=== PATIENT | female | born 1960 | race Caucasian/White ===

== ENCOUNTER → 2016-10-30 | Outpatient (CLI) | payer OTHER ==
[~2016-10-30] MED LIST: ASPI81CH CHEW; ASPI81TA82 PO; BUPR150T3 PO; CALC-137 PO; CALC1WAF CHEW; CARA1TAB6 PO; CLON1 PO; ESCI10TA PO; EVIS60TA PO; LANS30 PO; LEXA10TA PO; LOPR50TA12 PO; MAGICPED SWISH-SWAL; METO-309 PO; NEXI40CA PO; PRAV80 PO; RALO1TAB13 PO; SUCR1S PO; WELLTAB39 PO; ZOFR4TAB3 SL
[2016-10-30 13:39] LABS: PROTHROMBIN TIME - PATIENT 10.9 SEC (9.8-11.6)
== END ==
LOC: PLAB 12:46
PROVIDERS: ATTEND Orthopaedic Surgery Orthopaedic Surgery of the Spine
DX: Z01.818 Encounter for other preprocedural examination (principal); D68.9 Coagulation defect, unspecified; Z79.01 Long term (current) use of anticoagulants
CPT/HCPCS: 36415; 85049; 85610

== ENCOUNTER → 2016-11-02 | Day surgery (SDC) | payer OTHER ==
[~2016-11-02] MED LIST changes: +ACETAMINOPHEN/HYDROcodone 325 MG/5 MG TAB ONE; +BUPIVACAINE/EPINEPHRINE 0.5% PF 30 ML VIAL ONE; +IOHEXOL 180 MG/ML 20 ML VIAL (for RAD DIAG) ONE; +KETOROLAC TROMETHAMINE 30 MG/ML (IVP) VIAL IV PUSH ONE; +LACTATED RINGER'S 1000 ML INJ 1,000 ML ONE; +LIDOCAINE 1%/EPINEPHrine 1:100,000 SOLN 20 ML VIAL ONE; +MIDAZOLAM HCL 2 MG/2 ML VIAL ONE; +PROPOFOL 200 MG/20 ML AMP IV ONE; +ceFAZolin 2 GM PREMIX 50 ML ONE
--- NOTE | 2016-11-02 15:20 | TN ---
cc: AMISHA HASSAN DATE OF SURGERY: 11/02/2016 PREOPERATIVE DIAGNOSIS Compression fracture T5, subacute. POSTOPERATIVE DIAGNOSIS Compression fracture T5, subacute. PROCEDURE Kyphoplasty of T5 and placement of a bone cement spacer. SURGEON Amisha Hassan ANESTHESIA TIVA. ESTIMATED BLOOD LOSS Minimal. INDICATION This is a 56-year-old female who over the , approximately 6-7 weeks ago, fell in the shower sustaining an injury to her mid back. Studies including a CT scan showed continued compression across a recent fracture at the T5 level. Despite conservative care the patient is painful and symptomatic. She presents for surgical treatment. DETAILS OF PROCEDURE The patient was brought to the operating room and anesthetized with limited sedation. She was rolled to a prone position on the radiolucent table. All pressure points were protected and the back was scrubbed with alcohol followed by Hibiclens followed by ChloraPrep and draped sterilely. Antibiotics were given within a one hour time window and a timeout was done. A single balloon approach from the left side was utilized. Local anesthesia was utilized. A small incision was made. An awl was placed through the pedicle and into the vertebral body at an oblique angle. A 15 mm Kyphon balloon was placed centrally. This was inflated while on the back table methyl methacrylate was mixed. On the back table this was held and then injected at 11 minutes. We overall had good fill but began having some extravasation anteriorly and filling was stopped. The cement was allowed to harden. The tubes were removed. Intraoperative x-rays were obtained. The wound was irrigated, anesthetized and closed with 4-0 Vicryl followed by Dermabond. The patient was awakened and taken to Recovery in satisfactory condition. MD SHANTHI Varela/AKASH /3:10 PM /3:15 PM
== END | disposition home or self-care (01) ==
LOC: ESDC 12:38
PROVIDERS: ATTEND Orthopaedic Surgery Orthopaedic Surgery of the Spine
DX: S22.050A Wedge compression fracture of T5-T6 vertebra, initial encounter for closed fracture (principal)
CPT/HCPCS: 01936; 22513; 72100; J0690; J1885; J2250; J3010; J7120; Q9965

== ENCOUNTER → 2016-11-21 | Outpatient (CLI) | payer OTHER ==
[~2016-11-21] MED LIST changes: -ACETAMINOPHEN/HYDROcodone 325 MG/5 MG TAB ONE; -BUPIVACAINE/EPINEPHRINE 0.5% PF 30 ML VIAL ONE; -IOHEXOL 180 MG/ML 20 ML VIAL (for RAD DIAG) ONE; -KETOROLAC TROMETHAMINE 30 MG/ML (IVP) VIAL IV PUSH ONE; -LACTATED RINGER'S 1000 ML INJ 1,000 ML ONE; -LIDOCAINE 1%/EPINEPHrine 1:100,000 SOLN 20 ML VIAL ONE; -MIDAZOLAM HCL 2 MG/2 ML VIAL ONE; -PROPOFOL 200 MG/20 ML AMP IV ONE; -ceFAZolin 2 GM PREMIX 50 ML ONE
[2016-11-21 13:37] LABS: BICARBONATE 29.6 MEQ/L (21.0-32.0)
== END ==
LOC: PLAB 10:49
PROVIDERS: ATTEND Family Medicine
DX: N28.9 Disorder of kidney and ureter, unspecified (principal)
CPT/HCPCS: 36415; 80048

== ENCOUNTER → 2017-02-22 | Outpatient (CLI) | payer OTHER ==
[2017-02-22 13:34] LABS: AUTOMATED NEUTROPHIL # 4.7 TH/MM3 (1.8-7.7); BASOPHIL % 0.3 % (0.0-2.0); EOSINOPHIL # 0.2 TH/MM3 (0-0.4); HEMATOCRIT 38.9 % (35.0-46.0); HEMO FLAGS DIFF FINAL; LYMPH % 33.4 % (9.0-44.0); LYMPHOCYTE # 2.9 TH/MM3 (1.0-4.8); MEAN CELL VOLUME 86.4 FL (80.0-100.0); MEAN CORPUSCULAR HEMOGLOBIN 29.2 PG (27.0-34.0); MEAN CORPUSCULAR HGB CONC 33.8 % (32.0-36.0); MONO % 10.7 % (0.0-8.0); NEUT % 53.6 % (16.0-70.0); PLATELET COUNT 239 TH/MM3 (150-450); RED CELL DISTRIBUTION WIDTH 14.7 % (11.6-17.2); WHITE BLOOD COUNT 8.8 TH/MM3 (4.0-11.0)
[2017-02-22 14:04] LABS: ALKALINE PHOSPHATASE 109 U/L (45-117); ALT (GPT) 135 U/L (10-53); ANION GAP 10 MEQ/L (5-15); AST (GOT) 98 U/L (15-37); BICARBONATE 29.2 MEQ/L (21.0-32.0); BLOOD UREA NITROGEN 29 MG/DL (7-18); CHLORIDE 103 MEQ/L (98-107); GLOMERULAR FILTRATION RATE 50 ML/MIN (>89); GLUCOSE,FASTING 108 MG/DL (74-99); HDL CHOLESTEROL 71.9 MG/DL (40.0-60.0); LDL CHOLESTEROL 69 MG/DL (0-99); POTASSIUM 4.3 MEQ/L (3.5-5.1); SODIUM (NA) 142 MEQ/L (136-145); TOTAL BILIRUBIN ADULT 0.6 MG/DL (0.2-1.0)
== END ==
LOC: PLAB 12:01
PROVIDERS: ATTEND Family Medicine
DX: E78.5 Hyperlipidemia, unspecified (principal); N28.9 Disorder of kidney and ureter, unspecified; K31.84 Gastroparesis; K21.9 Gastro-esophageal reflux disease without esophagitis
CPT/HCPCS: 80053; 80061; 85025

== ENCOUNTER 2017-03-13 12:45 | Inpatient (IN) | payer OTHER ==
[~2017-03-13] VITALS: Ht 160 cm; Wt 67.3 kg
[~2017-03-13 12:45] MED LIST changes: -ASPI81CH CHEW; -CALC1WAF CHEW; -CARA1TAB6 PO; -EVIS60TA PO; -LEXA10TA PO; -MAGICPED SWISH-SWAL; -METO-309 PO; -NEXI40CA PO; -SUCR1S PO; -WELLTAB39 PO
[2017-03-13 12:47] VITALS: BP 143/81; PULSE 64; RESP 15; TEMP 98.1; O2SAT 98
[2017-03-13] MEDS ORDERED: SODIUM CHLOR 0.9% 1000 ML INJ 1,000 ML IV SCH (13:10)
[2017-03-13] MEDS ORDERED: ONDANSETRON HCL 4 MG/2 ML VIAL IVP ONE (13:15)
[2017-03-13] MEDS ORDERED: HYDROmorphone HCL PF 1 MG/ML VIAL IVS ONE (13:15)
[2017-03-13] MEDS ORDERED: SODIUM CHLORIDE 0.9% FLUSH 10 ML FLUSH IV FLUSH PRN ×2 (13:15→16:45)
--- NOTE | 2017-03-13 13:29 | PD ---
HPI Chief Complaint: Abdominal Pain Time Seen by Provider: 13:02 Travel History International Travel<30 days: No Contact w/Intl Traveler<30days: No Traveled to known affect area: No History of Present Illness HPI This is a 56-year-old female who has a history of complicated hiatal hernia repair with Damon fundoplication who presents to the emergency department today with onset of abdominal discomfort that started around 9 AM described as sharp, constant, nonradiating, associated with about 4 episodes of vomiting. She denies any fevers or chills. She said her past bowel movement was yesterday and was normal. She's never had pain like this before. Her daughter says that over the past several weeks she's noticed that she's been regurgitating a little bit more and isn't tolerating eating is easily. She also was told recently by her primary care physician but her liver function tests were elevated. She was seen by her primary care doctor yesterday because she was having some swelling involving her left ankle and she was given a steroid injection and an outpatient ultrasound was ordered. PFSH Past Medical History Cancer: No Cardiovascular Problems: No Endocrine: No Gastrointestinal Disorders: Yes (GERD) Genitourinary: No Hepatitis: No Hiatal Hernia: Yes Hypertension: Yes Immune Disorder: No Musculoskeletal: Yes (OSTEOPOROSIS, C5-6 HERNIATED DISC) Neurologic: No Psychiatric: Yes (DEPRESSION) Reproductive: No Respiratory: No ?: Not Past Surgical History Abdominal Surgery: Yes (HIATAL HERNIA) Body Medical Devices: NONE Cardiac Surgery: No Ear Surgery: No Endocrine Surgery: No Eye Surgery: No Genitourinary Surgery: No Gynecologic Surgery: Yes (TOTAL ABD HYSTERECTOMY) Joint Replacement: No Oral Surgery: No Pacemaker: No Thoracic Surgery: No Other Surgery: Yes Social History Alcohol Use: No Tobacco Use: No Substance Use: No Allergies-Medications (Allergen,Severity, Reaction): Coded Allergies: Morphine (Verified Allergy, Mild, ITCHING, 03/13/17) ITCHING Epinephrine (Verified Adverse Reaction, Severe, INCREASED HEART RATE, 03/13) Reported Meds & Prescriptions Reported Meds & Active Scripts Active Reported Calcium Carbonate 500 Mg Wafr 500 Mg CHEW 500 mg calcium carbonate (200 mg elemental calcium) Carafate (Sucralfate) 1 Gm Tab 1 Gm PO TID On empty stomach Nexium (Esomeprazole DR) 40 Mg Capdr 40 Mg PO DAILY Evista (Raloxifene HCl) 60 Mg Tab 60 Mg PO DAILY Lexapro (Escitalopram Oxalate) 10 Mg Tab 10 Mg PO DAILY Wellbutrin Xl 24 HR (Bupropion HCl) 300 Mg Tab 450 Mg PO DAILY Lopressor (Metoprolol Tartrate) 50 Mg Tab 50 Mg PO DAILY Aspirin 81 Mg Chew 81 Mg CHEW DAILY Review of Systems Except as stated in HPI: all other systems reviewed are Neg Physical Exam Narrative GENERAL: Uncomfortable appearing, actively vomiting SKIN: Erythema and warmth involving the medial aspect of the right ankle HEAD: Atraumatic. Normocephalic. EYES: Pupils equal and round. No injection or drainage. ENT: Dry mucous membranes. NECK: Trachea midline. CARDIOVASCULAR: Regular rate and rhythm. No murmur appreciated. RESPIRATORY: Clear to auscultation. Breath sounds equal bilaterally. GASTROINTESTINAL: Abdomen soft, tender to palpation in the epigastrium and left upper quadrant with some guarding MUSCULOSKELETAL: No obvious deformities. NEUROLOGICAL: Awake and alert. No obvious cranial nerve deficits. Moving all extremities. PSYCHIATRIC: Appropriate mood and affect; insight and judgment normal. Data Data Last Documented VS Vital Signs Date Time Temp Pulse Resp B/P Pulse Ox O2 Delivery O2 Flow Rate FiO2 03/13/17 14:26 18 98 Room Air 03/13/17 14:25 64 128/69 03/13/17 12:47 98.1 Orders Complete Blood Count With Diff (03/13/17 13:10) Comprehensive Metabolic Panel (03/13/17 13:10) Lipase (03/13/17 13:10) Urinalysis - C+S If Indicated (03/13/17 13:10) Ct Abd/Pel W Iv Contrast(Rout) (03/13/17 13:10) Iv Access Insert/Monitor (03/13/17 13:10) Ecg Monitoring (03/13/17 13:10) Oximetry (03/13/17 13:10) Ondansetron Inj (Zofran Inj) (03/13/17 13:15) Sodium Chlor 0.9% 1000 Ml Inj (Ns 1000 M (03/13/17 13:10) Sodium Chloride 0.9% Flush (Ns Flush) (03/13/17 13:15) Hydromorphone Pf Inj (Dilaudid Pf Inj) (03/13/17 13:15) Lactic Acid (03/13/17 13:12) Us Abdomen Gallbladder (03/13/17 ) Iohexol 350 Inj (Omnipaque 350 Inj) (03/13/17 14:53) Piperacil-Tazo 3.375 Gm Premix (Zosyn 3. (03/13/17 15:30) Admit Order (Ed Use Only) (03/13/17 15:45) Labs Laboratory Tests Test 03/13/17 03/13/17 03/13/17 13:15 13:20 13:25 White Blood Count 13.3 TH/MM3 Red Blood Count 4.18 MIL/MM3 Hemoglobin 12.2 GM/DL Hematocrit 36.1 % Mean Corpuscular Volume 86.4 FL Mean Corpuscular Hemoglobin 29.2 PG Mean Corpuscular Hemoglobin 33.8 % Concent Red Cell Distribution Width 13.6 % Platelet Count 199 TH/MM3 Mean Platelet Volume 8.9 FL Neutrophils (%) (Auto) 76.6 % Lymphocytes (%) (Auto) 13.5 % Monocytes (%) (Auto) 8.9 % Eosinophils (%) (Auto) 0.6 % Basophils (%) (Auto) 0.4 % Neutrophils # (Auto) 10.1 TH/MM3 Lymphocytes # (Auto) 1.8 TH/MM3 Monocytes # (Auto) 1.2 TH/MM3 Eosinophils # (Auto) 0.1 TH/MM3 Basophils # (Auto) 0.1 TH/MM3 CBC Comment AUTO DIFF Differential Comment AUTO DIFF CONFIRMED Sodium Level 140 MEQ/L Potassium Level 3.9 MEQ/L Chloride Level 104 MEQ/L Carbon Dioxide Level 26.6 MEQ/L Anion Gap 9 MEQ/L Blood Urea Nitrogen 25 MG/DL Creatinine 0.97 MG/DL Estimat Glomerular Filtration 59 ML/MIN Rate Random Glucose 120 MG/DL Calcium Level 9.7 MG/DL Total Bilirubin 1.4 MG/DL Aspartate Amino Transf 99 U/L (AST/SGOT) Alanine Aminotransferase 125 U/L (ALT/SGPT) Alkaline Phosphatase 127 U/L Total Protein 7.7 GM/DL Albumin 3.4 GM/DL Lipase 204 U/L Lactic Acid Level 0.6 mmol/L Urine Collection Type VOIDED Urine Color YELLOW Urine Turbidity CLEAR Urine pH 5.5 Urine Specific [place] 1.018 Urine Protein NEG mg/dL Urine Glucose (UA) NEG mg/dL Urine Ketones NEG mg/dL Urine Occult Blood TRACE Urine Nitrite NEG Urine Bilirubin NEG Urine Leukocyte Esterase NEG Urine RBC 0-3 /hpf Urine WBC 0-2 /hpf Urine Squamous Epithelial 0-5 /hpf Cells Urine Bacteria RARE /hpf Microscopic Urinalysis Comment CULT NOT INDICATED Urine Collection Time 1325 MDM Medical Decision Making Medical Screen Exam Complete: Yes Emergency Medical Condition: Yes Interpretation(s) Afebrile, no tachycardia, mild hypertension Mild leukocytosis Total bilirubin is 1.4 Transaminitis Urinalysis: No infection Differential Diagnosis Choledocholithiasis, cholangitis, gastritis, gastric outlet obstruction, ileus Narrative Course This is a 56-year-old female who presents to the emergency department with vomiting. She is a complex history including hiatal hernia repair complicated by a long hospital stay with aspiration pneumonia. Here she was placed in a monitor and an IV was established. She is actively retching when she arrived. She was given Dilaudid, Zofran and IV fluids. She does have a slight leukocytosis which may be due to steroid injection yesterday, cellulitis on the ankle, or may be in the setting of her acute illness. Labs demonstrate a total bilirubin which is higher than previous from 2 weeks ago. Ultrasound and CT imaging were reassuring. I think patient should be observed for continued symptomatic management. I'm concerned her symptoms still may be related to biliary pathology. I discussed this with Dr. Alicea and Dr. Arvizu Diagnosis Primary Impression: Abnormal liver enzymes Additional Impression: Vomiting Qualified Code: R11.2 - Non-intractable vomiting with nausea, unspecified vomiting type Admitting Information Admitting Physician Requests: Observation Mago Pelletier MD March 13, 2017 13:29
[2017-03-13 13:33] LABS: AUTOMATED NEUTROPHIL # 10.1 TH/MM3 (1.8-7.7); BASOPHIL # 0.1 TH/MM3 (0-0.2); BASOPHIL % 0.4 % (0.0-2.0); EOSINOPHIL # 0.1 TH/MM3 (0-0.4); EOSINOPHIL % 0.6 % (0.0-4.0); HEMATOCRIT 36.1 % (35.0-46.0); LYMPH % 13.5 % (9.0-44.0); LYMPHOCYTE # 1.8 TH/MM3 (1.0-4.8); MEAN CELL VOLUME 86.4 FL (80.0-100.0); MEAN CORPUSCULAR HEMOGLOBIN 29.2 PG (27.0-34.0); MEAN CORPUSCULAR HGB CONC 33.8 % (32.0-36.0); MONO % 8.9 % (0.0-8.0); NEUT % 76.6 % (16.0-70.0); PLATELET COUNT 199 TH/MM3 (150-450); RED BLOOD COUNT 4.18 MIL/MM3 (4.00-5.30); RED CELL DISTRIBUTION WIDTH 13.6 % (11.6-17.2); WHITE BLOOD COUNT 13.3 TH/MM3 (4.0-11.0)
[2017-03-13 13:34] LABS: HEMO FLAGS AUTO DIFF
[2017-03-13 13:36] LABS: BLOOD, URINE TRACE (NEG); GLUCOSE,URINE NEG (NEG); KETONE, URINE NEG (NEG); NITRITE,URINE NEG (NEG); PH, URINE 5.5 (5.0-8.5)
[2017-03-13] MEDS ORDERED: METO-309 PO (13:40)
[2017-03-13] MEDS ORDERED: LEXA10TA PO (13:40)
[2017-03-13] MEDS ORDERED: CARA1TAB6 PO (13:40)
[2017-03-13] MEDS ORDERED: ASPI81CH CHEW (13:40)
[2017-03-13] MEDS ORDERED: CALC1WAF CHEW (13:40)
[2017-03-13] MEDS ORDERED: WELLTAB39 PO (13:40)
[2017-03-13] MEDS ORDERED: EVIS60TA PO (13:40)
[2017-03-13] MEDS ORDERED: NEXI40CA PO (13:40)
[2017-03-13 13:46] LABS: CHLORIDE 104 MEQ/L (98-107); POTASSIUM 3.9 MEQ/L (3.5-5.1); SODIUM (NA) 140 MEQ/L (136-145)
[2017-03-13 13:48] LABS: METHOD OF COLLECTION VOIDED; URINE COLOR YELLOW (YELLW/STRAW)
[2017-03-13 13:50] LABS: ANION GAP 9 MEQ/L (5-15); BICARBONATE 26.6 MEQ/L (21.0-32.0); BLOOD UREA NITROGEN 25 MG/DL (7-18)
[2017-03-13 13:51] LABS: BACTERIA, URINE RARE /hpf; COMMENT (UR) CULT NOT INDICATED; CULTURE IF INDICATED CULT NOT INDICATED; RBC, URINE 0-3 /hpf (0-3); SQUAMOUS EPITHELIAL CELL URINE 0-5 /hpf (0-5); WBC, URINE 0-2 /hpf (0-5)
[2017-03-13 13:53] LABS: ALT (GPT) 125 U/L (10-53); AST (GOT) 99 U/L (15-37); GLOMERULAR FILTRATION RATE 59 ML/MIN (>89)
[2017-03-13 13:55] LABS: TOTAL BILIRUBIN ADULT 1.4 MG/DL (0.2-1.0)
[2017-03-13 13:56] LABS: ALKALINE PHOSPHATASE 127 U/L (45-117)
[2017-03-13 13:57] LABS: SCAN/DIFF AUTO DIFF CONFIRMED
[2017-03-13 14:25] VITALS: BP 128/69; PULSE 64; RESP 18; O2SAT 98
[2017-03-13 14:26] VITALS: RESP 18; O2SAT 98
[2017-03-13] MEDS ORDERED: IOHEXOL 350 MG/ML 10 ML VIAL (for RAD DIAG) IV ONE (14:53)
--- NOTE | 2017-03-13 15:07 | RADHPO ---
EXAM DATE/TIME: 03/13/2017 14:07 [facility] COMPARISON: CT ABDOMEN & PELVIS W/O CONTRAST, July 01, 2016, 21:49. INDICATIONS : Epigastric pain. IV CONTRAST: 90 cc Omnipaque 350 (iohexol) IV ORAL CONTRAST: No oral contrast ingested. RADIATION DOSE: 10.88 CTDIvol (mGy) MEDICAL HISTORY : Hypertension. SURGICAL HISTORY : Hysterectomy. Hiatal hernia repair ENCOUNTER: Initial ACUITY: 1 day PAIN SCALE: 5/10 LOCATION: Bilateral upper quadrant TECHNIQUE: Volumetric scanning of the abdomen and pelvis was performed. Using automated exposure control and ad justment of the mA and/or kV according to patient size, radiation dose was kept as low as reasonably achievable to obtain optimal diagnostic quality images. FINDINGS: LOWER LUNGS: The visualized lower lungs are clear. LIVER: Homogeneous density without lesion. There is no dilation of the biliary tree. No calcified gallston es. SPLEEN: Normal size without lesion. PANCREAS: Within normal limits. KIDNEYS: Normal in size and shape. There is no mass, stone or hydronephrosis. ADRENAL GLANDS: Within normal limits. VASCULAR: There is no aortic aneurysm. BOWEL/MESENTERY: The configuration of the stomach is unchanged from previous CT with surgical staple line noted below an area of dilated lumen in the low chest adjacent to the distal esophagus which is minimally distend ed. The bowel is otherwise unremarkable with no abnormal dilatation, wall thickening or focal inflamm atory change identified. ABDOMINAL WALL: Within normal limits. RETROPERITONEUM: There is no lymphadenopathy. BLADDER: No wall thickening or mass. REPRODUCTIVE: Uterus surgically absent. No evidence of pelvic mass or free fluid. INGUINAL: There is no lymphadenopathy or hernia. MUSCULOSKELETAL: Within normal limits for patient age. CONCLUSION: No definite acute CT findings in the abdomen or pelvis. Camden Falk MD on March 13, 2017 at 14:59 Board Certified Radiologist. This report was verified electronically.
--- NOTE | 2017-03-13 15:13 | RADHPO ---
EXAM DATE/TIME: 03/13/2017 14:30 [facility] COMPARISON: CT ABDOMEN & PELVIS W CONTRAST, March 13, 2017, 14:07. INDICATIONS : Nausea. Vomiting. MEDICAL HISTORY : Gastroesophageal reflux disease. Osteoporosis. C5-6 herniated disk. SURGICAL HISTORY : Hysterectomy. Hital hernia repair. ENCOUNTER: Initial ACUITY: 1 day PAIN SCORE: 0/10 LOCATION: Right upper quadrant MEASUREMENTS: LIVER: 14.3 cm length COMMON DUCT: 3 mm RIGHT KIDNEY: 10.7 x 4.7 x 5.2 cm FINDINGS: LIVER: Normal echotexture without focal lesion or ductal dilatation. COMMON DUCT: No intraluminal mass or stone visualized. GALLBLADDER: Distended without definite stones or wall thickening.. PANCREAS: Obscured RIGHT KIDNEY: No evidence of hydronephrosis, stone, or mass. CONCLUSION: Focally unremarkable sonographic appearance of the abdomen Camden Falk MD on March 13, 2017 at 15:10 Board Certified Radiologist. This report was verified electronically.
[2017-03-13] MEDS ORDERED: PIPERACIL-TAZO 3.375 GM PREMIX 50 ML IV ONE (15:30)
[2017-03-13 16:29] VITALS: BP 108/63; PULSE 63; RESP 18; O2SAT 98
[2017-03-13] MEDS ORDERED: BISACODYL 10 MG SUPP RECTAL PRN (16:45)
[2017-03-13] MEDS ORDERED: NALOXONE HCL 0.4 MG/ML AMP IV PRN (16:45)
[2017-03-13] MEDS ORDERED: SENNOSIDES 8.6 MG TAB PO PRN (16:45)
[2017-03-13] MEDS ORDERED: MAGNESIUM HYDROXIDE SUSP 30 ML CUP PO PRN (16:45)
[2017-03-13] MEDS ORDERED: LACTULOSE SYRUP 20 GM/30 ML CUP PO PRN (16:45)
[2017-03-13] MEDS ORDERED: ONDANSETRON HCL 4 MG/2 ML VIAL IVP PRN (16:45)
[2017-03-13 17:40] VITALS: BP 113/69; PULSE 59; RESP 18; TEMP 98.3; O2SAT 95
[2017-03-13] MEDS: SODIUM CHLOR 0.45% 1000 ML INJ 1,000 ML IV SCH (18:04)
[2017-03-13] MEDS: DOCUSATE SODIUM 50 MG/SENNA 8.6 MG TAB PO SCH (19:41)
[2017-03-13 20:00] VITALS: BP 100/52; PULSE 60; RESP 18; TEMP 96.7; O2SAT 96
[2017-03-13] MEDS ORDERED: HYDROmorphone HCL PF 1 MG/ML VIAL IV PUSH PRN (20:45)
[2017-03-13] MEDS: buPROPion HCL 100 MG SUSTAINED RELEASE TAB PO SCH ×2 (20:56→21:00)
[2017-03-13] MEDS: SUCRALFATE 1 GM TAB PO SCH (20:56)
[2017-03-13] MEDS: PANTOPRAZOLE SOD 40 MG DELAYED RELEASE TAB PO SCH (20:57)
[2017-03-13] MEDS: METOPROLOL TARTRATE 50 MG TAB PO SCH (20:57)
[2017-03-14] VITALS: BP 114/71; PULSE 71; RESP 18; TEMP 98.7; O2SAT 96
[2017-03-14] MEDS: SODIUM CHLOR 0.45% 1000 ML INJ 1,000 ML IV SCH ×2 (05:19→16:44)
[2017-03-14] MEDS: SUCRALFATE 1 GM TAB PO SCH ×4 (05:19→21:51)
[2017-03-14 06:34] LABS: AUTOMATED NEUTROPHIL # 5.5 TH/MM3 (1.8-7.7); BASOPHIL % 0.5 % (0.0-2.0); EOSINOPHIL # 0.1 TH/MM3 (0-0.4); EOSINOPHIL % 0.7 % (0.0-4.0); HEMATOCRIT 31.4 % (35.0-46.0); HEMO FLAGS DIFF FINAL; LYMPHOCYTE # 1.8 TH/MM3 (1.0-4.8); MEAN CELL VOLUME 87.2 FL (80.0-100.0); MEAN CORPUSCULAR HEMOGLOBIN 29.2 PG (27.0-34.0); MEAN CORPUSCULAR HGB CONC 33.5 % (32.0-36.0); MONO % 9.2 % (0.0-8.0); NEUT % 67.6 % (16.0-70.0); PLATELET COUNT 173 TH/MM3 (150-450); RED CELL DISTRIBUTION WIDTH 13.9 % (11.6-17.2); WHITE BLOOD COUNT 8.2 TH/MM3 (4.0-11.0)
[2017-03-14 06:39] LABS: CHLORIDE 109 MEQ/L (98-107); POTASSIUM 3.9 MEQ/L (3.5-5.1); SODIUM (NA) 145 MEQ/L (136-145)
[2017-03-14 06:56] LABS: ALKALINE PHOSPHATASE 143 U/L (45-117); ALT (GPT) 219 U/L (10-53); ANION GAP 7 MEQ/L (5-15); AST (GOT) 169 U/L (15-37); BLOOD UREA NITROGEN 18 MG/DL (7-18); GLOMERULAR FILTRATION RATE 65 ML/MIN (>89); TOTAL BILIRUBIN ADULT 0.8 MG/DL (0.2-1.0)
--- NOTE | 2017-03-14 07:09 | MH ---
cc: DYANA AGEE MD DATE OF ADMISSION: 03/13/2017 CHIEF COMPLAINT Intractable vomiting. Severe epigastric abdominal pain. ADMISSION DIAGNOSES Intractable vomiting. Severe epigastric abdominal pain. HISTORY OF PRESENT ILLNESS Ms. Fay is a 56-year-old white female, well-known to me from the office who presents with severe onset of abdominal pain that began this morning about 9 o'clock, worsened through 11-12 o'clock and ended up with significant vomiting and severe epigastric pain. She came to the emergency department for evaluation due to the pain and the vomiting. She is status post treatment of a gastric volvulus by Dr. Hernandez in late 2015 with postop complications necessitating a PEG tube placement and prolonged rehab. She was just getting back to her normal self and getting back to work when she started over the past couple of weeks with increased heartburn sensation, epigastric discomfort, some pain to her mid, upper back and shoulders and increasing nausea. She was not really having any abdominal pain until just today. She has not had fever, sweats or chills. She has a normal bowel movement yesterday. No blood or other changes in her bowels. PAST MEDICAL HISTORY Significant for - 1. Hyperlipidemia. 2. Depression. 3. Gastroesophageal reflux disease. 4. History of SVT. 5. History of aspiration pneumonia after her gastric volvulus repair in April of 2016. 6. ARDS secondary to aspiration pneumonia and surgery. 7. Fungemia since July of 2016. 8. Acute renal insufficiency through September of 2016. PAST SURGICAL HISTORY 1. Damon fundoplication in May 2016. 2. G-tube placement in May 2016. 3. Tracheostomy in May 2016. 4. Gastric volvulus repaired on April 30, 2016. 5. Hysterectomy in 2006. SOCIAL HISTORY She is . She is an RN at [employer]. She has no history of tobacco use. Minimal alcohol use. MEDICATIONS 1. Protonix has been less effective over the past few weeks. I just changed her to Dexilant yesterday but I do not think she had an opportunity to start that. 2. Metoprolol tartrate 50 mg p.o. b.i.d. 3. Aspirin 81 mg per day. 4. Bupropion 450 mg daily. 5. Carafate 1 gram p.o. q.i.d. which she just restarted again in the past week. 6. Escitalopram oxalate 10 mg p.o. daily. 7. Raloxifene 60 mg p.o. daily. ALLERGIES No known drug allergies. FAMILY HISTORY Brother with lung cancer. Dad has had hypertension, hyperlipidemia, heart disease, kidney failure. Mom had hyperlipidemia, hypertension, osteoporosis, pancreatic cancer, breast cancer. Both mom and dad have been . She has a sister with hypertension and hyperlipidemia. IMMUNIZATIONS She has had her flu vaccine. OTHER PHYSICIANS Dr. Camden Mejia in gynecology. Dr. Hernandez in surgery. Dr. Goodwin in GI. REVIEW OF SYSTEMS She has had no fever, no upper respiratory symptoms. No changes in vision or hearing. No lymphadenopathy. She has had no chest discomfort. No shortness of breath. The abdominal symptoms as noted above. She had no pain with urination. No blood in the urine. She had a edema to her right ankle with erythema, heat and increased pain over the past few days. I did give her a Kenalog 40 mg IM shot yesterday to help with that and the pain and swelling are significantly better today in the ankle. She also had several spots to her anterior lower legs that were non-blanchable, slightly elevated, red and very tender that also had improved. She has had no other skin lesions that she has noted. The remainder of review of systems is negative. OBJECTIVE VITAL SIGNS: She has been afebrile since admission, pulse has been in the 60s, respiratory rate 15, blood pressure 140/81, down to 108/63. O2 sat is 98% on room air. GENERAL: A well-developed white female in no acute distress. She is laying in bed, sleeping when I arrived. She is easily awakened. She has pain currently a 2/10. She did have Dilaudid a little while ago. HEENT: Pupils are equal. Oropharynx is benign. NECK: Supple without lymphadenopathy. No supraclavicular adenopathy. CARDIOVASCULAR: Regular rate and rhythm, without murmurs. LUNGS: Clear to auscultation bilaterally. No wheezes, no rhonchi, no egophony. ABDOMEN: Normal bowel sounds at this time. There is no tinkling bowel sounds or hyperactive bowel sounds. She is very minimally tender to the epigastrium and right upper quadrant at this time with no rebound, no masses. She has a scar, well-healed from her prior surgeries and PEG tube placement. No sign of hernia. No CVA tenderness. LOWER EXTREMITIES: Without edema. She still has some of the raised, red, tender nodules to the anterior bilateral lower extremities. The right medial malleolus is no longer swollen; it is granulator tender to touch with very mild telangiectasias noted. No calf tenderness. LABORATORY DATA White count 13.3, hemoglobin 12.2, hematocrit 36.1, platelets of 199, neutrophils slightly elevated at 76.6%. Kidney functions within normal limits. Sugar was slightly elevated at 120. Lactic acid 0.6. Total bilirubin elevated at 1.4 AST is 99, ALT of 125, alkaline phos of 127. Protein was normal. Lipase was 204. Urinalysis showed trace blood, rare bacteria, otherwise negative. IMAGING STUDIES Ultrasound of the gallbladder showed a dilated gallbladder but no thickening and no stones. CT scan of the abdomen showed a normal pancreas and no other changes other than her postsurgical changes with staple placement. ASSESSMENT AND PLAN 1. Epigastric and right upper quadrant. She does have discomfort after eating but has also had increasing GERD symptoms. She seems to be pretty well after some pain medications and Zofran in the emergency department and getting IV fluids. She was able to tolerate some Jello just shortly prior to my visit without any increased pain. She has noted that this morning peanut butter and jelly seemed to make her abdomen worse. I still think this could be a gallbladder tissue. However, her ultrasound and CT scan is apparently negative. May consider outpatient HIDA scan versus surgical consultation. We will see how she does in the morning and what her labs show. Other consideration would be for continued GI issues, gastritis, potentially for gastric ulcer. If she is significantly more painful, may consider GI consultation in the morning. 2. Elevated liver function tests. She has never had this in the past. I have recently stopped her pravastatin to see if they will improve. She does have increased alk phos and bilirubin which shows a slightly more obstructive pattern. It could be that she had a gallstone that has recently passed that she may show improvement from here on out. We will continue to monitor and consider GI evaluation. 3. Hypertension and history of SVT. We will continue her on metoprolol at this time. 4. Depression. We will continue her on her medications. 5. Gastroesophageal reflux disease. This has been severe. She has had hiatal hernia with a gastric volvus, status post repair in 2016. She has not fully recuperated from that but was doing significantly better prior to this event. MD LYLE Jason/MED /10:11 PM /6:38 AM
[2017-03-14 08:00] VITALS: BP 120/78; PULSE 62; RESP 18; TEMP 97.1; O2SAT 97
--- NOTE | 2017-03-14 08:50 | HHI.FPPN ---
Subjective Remarks Pain to the abdomen is better / but with severe burning and heart burn feeling to the chest. No SOB, not worse with activity. No vomiting but has had minimal to eat. Tolerated broth and jello last PM. No BM since admit. Only had 1 dose of dilaudid yesterday and hasn't needed anything further. Just doesn't feel right. Right ankle pain still there but able to walk. Objective Vitals Vital Signs Date Time Temp Pulse Resp B/P Pulse Ox O2 Delivery O2 Flow Rate FiO2 03/14/17 00:00 98.7 71 18 114/71 96 03/13/17 20:00 96.7 60 18 100/52 96 03/13/17 17:40 98.3 59 18 113/69 95 03/13/17 16:29 63 18 108/63 98 Room Air 03/13/17 14:26 18 98 Room Air 03/13/17 14:25 64 18 128/69 98 Room Air 03/13/17 14:25 18 03/13/17 12:47 98.1 64 15 143/81 98 I/O 03/13/17 03/13/17 03/13/17 03/14/17 03/14/17 03/14/17 06:59 14:59 22:59 06:59 14:59 22:59 Intake Total 1000 ml 250 ml 838 ml Balance 1000 ml 250 ml 838 ml Intake IV Total 1000 ml 250 ml 838 ml Result Diagram: 03/14/17 0550 03/14/17 0550 Objective Remarks Gen: WDWF, walking to her bed from the bathroom, no distress, able to get into bed without assistance or distress CV: RRR, no murmur Lungs: CTA bilaterally Abd: soft, scant BS, slightly high pitched when they are present, miild epigastric tenderness, not so tender to the RUQ, some LLQ tenderness, no rebound Ext: erythema and discomfort to the right medial inferior mallolar area better than 2 days ago but more pink than last PM, full ROM of the ankle, no pitting edema, no calf tenderness, had sequential TEDS on during the night. A/P Problem List: (1) Vomiting Status: Acute Plan: Better since yesterday. Pain is better. Not sure if she passed a gall stone and not seen on scanning, however her LFTs are worsening today. Will consult GI. She has had complicated abdominal surgery in the past year with initial surgery for gastric volvulus, then had aspiration pneumonia and failure of the original surgery having to have a second surgery with Solis fundoplication. She was on Trach for several months with ARDS after the aspiration pneumonia in 2016. She has had persistant GERD since that time but much more severe in the past 2 weeks despite PPI and carafate. May need upper endoscopy eval. CT and u/s were not that remarkable on admission yesterday. (2) Abnormal liver enzymes Status: Acute Plan: Worsening. She has had no exposures of concern for hepatitis. Will order testing but doubt that is the issue. (3) Depression Status: Chronic Plan: She sees psychiatry outpatient. She has been stable on her current meds. (4) Epigastric abdominal pain Status: Acute Plan: She had a decrease in her hbg that could have been due to IVF dilution, no blood in stool or emesis reported. continue to monitor. slb (5) GERD (gastroesophageal reflux disease) Status: Chronic Plan: Consulting GI for further eval. No sign of thrush on oral exam. She hasn't been on antibiotics recently. HAs been worse over 2 weeks but much worse since vomiting yesterday. Not sure if she could have had a Jeana Karma tear with the vomiting. (6) History of paroxysmal supraventricular tachycardia Status: Chronic Plan: Controlled with the metoprolol. Continue dosing but adjust if HR or BP is too low. Problem Qualifiers (1) Vomiting: Qualified Code: R11.2 - Non-intractable vomiting with nausea, unspecified vomiting type (2) Depression: Qualified Code: F33.40 - Recurrent major depressive disorder, in remission (3) GERD (gastroesophageal reflux disease): Qualified Code: K21.9 - Gastroesophageal reflux disease, esophagitis presence not specified Ely Alicea MD March 14, 2017 08:50
[2017-03-14] MEDS ORDERED: BUPROPION HCL PO SCH (09:00)
[2017-03-14] MEDS: PANTOPRAZOLE SOD 40 MG DELAYED RELEASE TAB PO SCH (09:00)
[2017-03-14] MEDS: DOCUSATE SODIUM 50 MG/SENNA 8.6 MG TAB PO SCH ×2 (09:49→21:50)
[2017-03-14] MEDS: METOPROLOL TARTRATE 50 MG TAB PO SCH ×2 (09:49→21:51)
[2017-03-14] MEDS: ESCITALOPRAM OXALATE 10 MG TAB PO SCH (09:49)
[2017-03-14] MEDS: buPROPion HCL 100 MG SUSTAINED RELEASE TAB PO SCH ×2 (11:54→21:51)
[2017-03-14] MEDS: DIPHENHY/LIDO/MAG/ALUM MOUTHWASH (Adult/Peds) 60 ML BTL SWISH-SWAL PRN ×2 (11:55→21:50)
[2017-03-14 12:00] VITALS: BP 143/75; PULSE 58; RESP 18; TEMP 97.6; O2SAT 96
[2017-03-14 12:07] LABS: AUTOMATED NEUTROPHIL # 4.4 TH/MM3 (1.8-7.7); BASOPHIL % 0.4 % (0.0-2.0); EOSINOPHIL # 0.1 TH/MM3 (0-0.4); HEMATOCRIT 31.8 % (35.0-46.0); HEMO FLAGS DIFF FINAL; LYMPH % 23.1 % (9.0-44.0); LYMPHOCYTE # 1.6 TH/MM3 (1.0-4.8); MEAN CORPUSCULAR HEMOGLOBIN 28.6 PG (27.0-34.0); MEAN CORPUSCULAR HGB CONC 32.9 % (32.0-36.0); NEUT % 65.5 % (16.0-70.0); PLATELET COUNT 171 TH/MM3 (150-450); RED BLOOD COUNT 3.66 MIL/MM3 (4.00-5.30); RED CELL DISTRIBUTION WIDTH 13.6 % (11.6-17.2); WHITE BLOOD COUNT 6.8 TH/MM3 (4.0-11.0)
[2017-03-14 16:00] VITALS: BP 135/73; PULSE 56; RESP 20; TEMP 97.8; O2SAT 96
--- NOTE | 2017-03-14 18:05 | MB ---
cc: GEORGE ROBERTO MD DATE OF CONSULTATION 03/14/17 [address] Ely Alicea. REASON FOR REFERRAL Abdominal pain, nausea, vomiting. HISTORY OF PRESENT ILLNESS Thank you for the consultation. A 56-year-old lady who has known history of hiatal hernia status post repair x2. The patient has gastric volvulus. Her procedure was complicated with aspiration and PEG tube with prolonged rehabilitation. The patient complaining of pain in the mid epigastric area, started having vomiting in the last 48 hours. She continued to have overall chronic pain. The patient had been scoped before the previous surgery last year by Dr. Goodwin. She complained of significant heartburn, despite taking Carafate and Protonix. She denied any diarrhea and no other symptoms. She also has elevated liver function tests which are of unclear etiology. She said her liver function fluctuates. Last time they were elevated in September. She takes statins and Dr. Alicea asked her to hold that so she held the statins two days ago. Next, the patient denied any jaundice, no itching, no other problem. PAST MEDICAL HISTORY 1. Hyperlipidemia, 2. Depression, 3. History of SVT 4. ARDS after aspiration due to surgery 5. Fungemia. 6. Acute renal insufficiency. SOCIAL HISTORY No tobacco, rare alcohol. MEDICATIONS Reviewed in the chart. PAST SURGICAL HISTORY 1. Damon fundoplication 2. G tube placement 3. Gastric volvulus repair. 4. Hysterectomy. ALLERGIES NO KNOWN DRUG ALLERGIES. FAMILY HISTORY Significant for hyperlipidemia, hypertension, coronary artery disease, kidney disease, lung cancer, breast cancer, osteoporosis, pancreatic cancer. PHYSICAL EXAMINATION GENERAL: Alert, oriented in no acute distress. VITAL SIGNS: Stable. HEENT: Pupils round, reactive to light. NECK: Supple. CHEST: Clear. CARDIAC: Regular rate and rhythm. No murmur or gallop. ABDOMEN: Soft, nondistended. Minimal tenderness in the mid epigastric area. the patient has scar from the PEG tube. No hepatosplenomegaly. No masses. EXTREMITIES: No edema, clubbing or cyanosis. The patient has an area of redness and tenderness that could be cellulitis versus joint inflammation of the ankle. PSYCHIATRIC: Psychologically appropriate. LABORATORY DATA White count 6.8 down from 13.3, hemoglobin 10.4 down from 12.2, platelets 171, AST 169 up from 99, ALT 219 up from 125, total bilirubin 0.8, alk phos 143, BUN 18, creatinine 0.9, Hepatitis pending. IMAGING STUDIES Gallbladder ultrasound is unremarkable. CT scan - no definite findings on the CT scan. ASSESSMENT/PLAN A 56-year-old lady with abdominal pain, nausea, vomiting could be gastroenteritis, but it could be peptic ulcer disease or recurrent hernia. I am going to perform an upper endoscopy on her. I discussed with her the procedure and complication. She agreed to have it done. This will be done tomorrow. Elevated liver function test, questionable medication related. I am going to follow up on her hepatitis profile. She had normal ultrasound, does not seem to be fatty liver. If the hepatitis is negative and the liver enzymes continue to be elevated, comprehensive workup would be needed. MD NURY Bunch/ /5:01 PM /5:52 PM
[2017-03-14 22:00] VITALS: BP 136/70; PULSE 58; RESP 20; TEMP 98.5; O2SAT 97
[2017-03-15 01:00] VITALS: BP 113/59; PULSE 57; RESP 20; TEMP 97.7; O2SAT 100
[2017-03-15] MEDS: DIPHENHY/LIDO/MAG/ALUM MOUTHWASH (Adult/Peds) 60 ML BTL SWISH-SWAL PRN (04:43)
[2017-03-15 04:44] VITALS: BP 131/78; PULSE 56; RESP 20; TEMP 97.1; O2SAT 98
[2017-03-15] MEDS: SUCRALFATE 1 GM TAB PO SCH (06:03)
[2017-03-15 06:45] VITALS: BP 131/76; PULSE 51; RESP 16; TEMP 97.9; O2SAT 97
[2017-03-15 06:48] LABS: AUTOMATED NEUTROPHIL # 3.1 TH/MM3 (1.8-7.7); BASOPHIL % 0.8 % (0.0-2.0); EOSINOPHIL # 0.1 TH/MM3 (0-0.4); EOSINOPHIL % 2.1 % (0.0-4.0); HEMATOCRIT 31.3 % (35.0-46.0); HEMO FLAGS DIFF FINAL; LYMPHOCYTE # 1.8 TH/MM3 (1.0-4.8); MEAN CELL VOLUME 87.5 FL (80.0-100.0); MEAN CORPUSCULAR HEMOGLOBIN 28.5 PG (27.0-34.0); MEAN CORPUSCULAR HGB CONC 32.6 % (32.0-36.0); MONO % 9.7 % (0.0-8.0); NEUT % 54.4 % (16.0-70.0); PLATELET COUNT 169 TH/MM3 (150-450); RED BLOOD COUNT 3.58 MIL/MM3 (4.00-5.30); RED CELL DISTRIBUTION WIDTH 13.7 % (11.6-17.2); WHITE BLOOD COUNT 5.5 TH/MM3 (4.0-11.0)
[2017-03-15 06:50] LABS: CHLORIDE 110 MEQ/L (98-107); POTASSIUM 3.7 MEQ/L (3.5-5.1); SODIUM (NA) 145 MEQ/L (136-145)
[2017-03-15 06:54] LABS: ANION GAP 6 MEQ/L (5-15); BICARBONATE 28.6 MEQ/L (21.0-32.0)
[2017-03-15 06:55] LABS: BLOOD UREA NITROGEN 12 MG/DL (7-18)
[2017-03-15 06:57] LABS: ALT (GPT) 152 U/L (10-53)
[2017-03-15 06:58] LABS: AST (GOT) 87 U/L (15-37); GLOMERULAR FILTRATION RATE 70 ML/MIN (>89)
[2017-03-15 06:59] LABS: TOTAL BILIRUBIN ADULT 0.7 MG/DL (0.2-1.0)
[2017-03-15 07:00] LABS: ALKALINE PHOSPHATASE 118 U/L (45-117)
--- NOTE | 2017-03-15 07:32 | HHI.PR ---
Subjective Subjective Notes I came to see patient this morning and she was in OR for EGD. Dr Arvizu allowed me to watch. Objective Vitals/I&O Vital Signs Date Time Temp Pulse Resp B/P Pulse Ox O2 Delivery O2 Flow Rate FiO2 03/15/17 06:45 97.9 51 16 131/76 97 03/13/17 16:29 Room Air Labs Laboratory Tests Test 03/14/17 03/15/17 03/15/17 12:00 05:13 05:15 White Blood Count 6.8 5.5 Red Blood Count 3.66 3.58 Hemoglobin 10.4 10.2 Hematocrit 31.8 31.3 Mean Corpuscular Volume 87.0 87.5 Mean Corpuscular Hemoglobin 28.6 28.5 Mean Corpuscular Hemoglobin 32.9 32.6 Concent Red Cell Distribution Width 13.6 13.7 Platelet Count 171 169 Mean Platelet Volume 8.6 9.0 Neutrophils (%) (Auto) 65.5 54.4 Lymphocytes (%) (Auto) 23.1 33.0 Monocytes (%) (Auto) 10.0 9.7 Eosinophils (%) (Auto) 1.0 2.1 Basophils (%) (Auto) 0.4 0.8 Neutrophils # (Auto) 4.4 3.1 Lymphocytes # (Auto) 1.6 1.8 Monocytes # (Auto) 0.7 0.5 Eosinophils # (Auto) 0.1 0.1 Basophils # (Auto) 0.0 0.0 CBC Comment DIFF FINAL DIFF FINAL Differential Comment Sodium Level 145 Potassium Level 3.7 Chloride Level 110 Carbon Dioxide Level 28.6 Anion Gap 6 Blood Urea Nitrogen 12 Creatinine 0.84 Estimat Glomerular Filtration 70 Rate Random Glucose 88 Calcium Level 8.7 Total Bilirubin 0.7 Aspartate Amino Transf 87 (AST/SGOT) Alanine Aminotransferase 152 (ALT/SGPT) Alkaline Phosphatase 118 Total Protein 6.1 Albumin 2.7 Narrative Exam Findings of Hiatal hernia with esophagitis noted, no stricture, ischemia, or obstruction. A/P Assessment and Plan Recurrent HH, esophagitis. Pt very high risk for any further surgery at the diaphragmatic hiatus. Continue lifestyle adjustments- more frequent smaller meals, and medical therapy. I am out of town for two weeks. If surgery consult needed formally, one of my partners could see. Thanks! Bebeto Hernandez MD March 15, 2017 07:32
--- NOTE | 2017-03-15 07:41 | GIPROC ---
[facility] [address] [place] [address], [id number] EGD PROCEDURE REPORT EXAM DATE: 03/15/2017 PATIENT NAME: Adela Fay MR #: [id number] BIRTHDATE: 1960 ATTENDING: Sona Maldonado MD ORDER #: [id number] STROKE BELT SANDER OPERATOR: Cesia Soriano and Kingsley Alvarado STATUS: inpatient INDICATIONS: The patient is a 56 yr old female here for an EGD due to heartburn PROCEDURE PERFORMED: EGD w/ biopsy MEDICATIONS: None and Per Anesthesia. TOPICAL ANESTHETIC: none CONSENT: The patient understands the risks and benefits of the procedure and understands that these risks include, but are not limited to: sedation, allergic reaction, infection, perforation and/or bleeding. Alternative means of evaluation and treatment include, among others: physical exam, x-rays, and/or surgical intervention. The patient elects to proceed with this endoscopic procedure. medical equipment was checked for proper function. Hand hygiene and appropriate measures for infection prevention was taken. After the risks, benefits and alternatives of the procedure were thoroughly explained, Informed consent was verified, confirmed and timeout was successfully executed by the treatment team. The patient was anesthetized with topical anesthesia and the Apperianax [id number] endoscope was introduced through the mouth and advanced to the second portion of the duodenum. Retroflexed views revealed a small hiatal hernia, anatomy C/W Damon fundoplication The gastroscope was then slowly withdrawn and removed. Mild grade B esophagitis, with tortuos esophagus and some food resdule. The endoscopy was otherwise normal. ADVERSE EVENTS: There were no complications. IMPRESSIONS: 1. Mild grade B esophagitis, with tortuos esophagus and some food resdule 2. Normal endoscopy otherwise 3. Retroflexed views revealed a hiatal hernia RECOMMENDATIONS: 1. Await biopsy results. Biopsy results will not be ready for 7-10 days. If you don't hear from us in two weeks, call our office for biopsy results. 2. Anti-reflux regimen 3. Soft diet 4. Avoid NSAIDS 5. Continue PPI PATIENT CONDITION: stable DISPOSITION: Inpatient REPEAT EXAM: Return as needed for EGD Sona Maldonado MD eSigned: Sona Maldonado MD 03/15/2017 7:41 AM cc:
--- NOTE | 2017-03-15 07:57 | HHI.GIFU ---
Subjective Remarks feels ok, still having heart burn Objective Vitals I&O Vital Signs Date Time Temp Pulse Resp B/P Pulse Ox O2 Delivery O2 Flow Rate FiO2 03/15/17 07:33 98.2 65 14 94/47 94 03/15/17 06:45 97.9 51 16 131/76 97 03/15/17 04:44 97.1 56 20 131/78 98 03/15/17 01:00 97.7 57 20 113/59 100 03/14/17 22:00 98.5 58 20 136/70 97 03/14/17 16:00 97.8 56 20 135/73 96 03/14/17 12:00 97.6 58 18 143/75 96 03/14/17 08:00 97.1 62 18 120/78 97 I/O 03/14/17 03/14/17 03/14/17 03/15/17 03/15/17 03/15/17 07:00 15:00 23:00 07:00 15:00 23:00 Intake Total 1738 ml 1375 ml 900 ml 1600 ml Balance 1738 ml 1375 ml 900 ml 1600 ml Intake Oral 1375 ml IV Total 1738 ml 900 ml 1600 ml # Voids 7 # Bowel Movements 0 Laboratory Laboratory Tests Test 03/14/17 03/15/17 03/15/17 12:00 05:13 05:15 White Blood Count 6.8 5.5 Red Blood Count 3.66 3.58 Hemoglobin 10.4 10.2 Hematocrit 31.8 31.3 Mean Corpuscular Volume 87.0 87.5 Mean Corpuscular Hemoglobin 28.6 28.5 Mean Corpuscular Hemoglobin 32.9 32.6 Concent Red Cell Distribution Width 13.6 13.7 Platelet Count 171 169 Mean Platelet Volume 8.6 9.0 Neutrophils (%) (Auto) 65.5 54.4 Lymphocytes (%) (Auto) 23.1 33.0 Monocytes (%) (Auto) 10.0 9.7 Eosinophils (%) (Auto) 1.0 2.1 Basophils (%) (Auto) 0.4 0.8 Neutrophils # (Auto) 4.4 3.1 Lymphocytes # (Auto) 1.6 1.8 Monocytes # (Auto) 0.7 0.5 Eosinophils # (Auto) 0.1 0.1 Basophils # (Auto) 0.0 0.0 CBC Comment DIFF FINAL DIFF FINAL Differential Comment Sodium Level 145 Potassium Level 3.7 Chloride Level 110 Carbon Dioxide Level 28.6 Anion Gap 6 Blood Urea Nitrogen 12 Creatinine 0.84 Estimat Glomerular Filtration 70 Rate Random Glucose 88 Calcium Level 8.7 Total Bilirubin 0.7 Aspartate Amino Transf 87 (AST/SGOT) Alanine Aminotransferase 152 (ALT/SGPT) Alkaline Phosphatase 118 Total Protein 6.1 Albumin 2.7 Physical Exam HEENT: Pupils round and reactive to light; normocephalic; atraumatic; no jaundice. Throat is clear. NECK: Neck is supple, no JVD, no lymphadenopathy. CHEST: Chest is clear to auscultation and percussion. CARDIAC: Regular rate and rhythm with no murmur gallop or rubs. ABDOMEN: Soft, nondistended, mild epigastric tenderness; no hepatosplenomegaly ; bowel sounds are present in all four quadrants. EXTREMITIES: No clubbing, cyanosis, or edema. SKIN: Normal; no rash; no jaundice. INDUSTRIAL ECOLOGY TECHNICIAN: No focal deficits; alert and oriented times three. Assessment and Plan Plan GERD, S/P Damon fundoplication, EGD showed small H Hernia with some food in esophagus possible tortuous esophagus, mild esophagitis bx done. Dr. Hernandez was present during EGD LFTs improving recommendation 1- soft diet as tolerated, avoid laying in bed after meals, or late meals. 2- continue PPI 3- continue mentioning LFTs, if patient is DC today she can have LFTs next week and FU as outpatient. Sona Maldonado MD March 15, 2017 07:56
[2017-03-15 08:00] VITALS: BP 141/76; PULSE 50; RESP 20; TEMP 96.4; O2SAT 99
[2017-03-15 08:10] VITALS: BP 129/75; PULSE 58; RESP 16; O2SAT 100
[2017-03-15] MEDS ORDERED: PROPOFOL 200 MG/20 ML AMP IV ONE (08:23)
[2017-03-15] MEDS: SODIUM CHLOR 0.45% 1000 ML INJ 1,000 ML IV SCH (08:34)
[2017-03-15] MEDS ORDERED: SUCR1S PO (08:50)
[2017-03-15] MEDS ORDERED: MAGICPED SWISH-SWAL (08:50)
[2017-03-15] MEDS ORDERED: METO-309 PO (08:50)
--- NOTE | 2017-03-15 08:54 | HHI.DS ---
Discharge Summary Admission Date March 14, 2017 at 08:42 Discharge Date: March 15, 2017 Admitting Diagnosis vomiting (1) Vomiting Diagnosis: Principal Plan: resolved. Pain is better. Not sure if she passed a gall stone and not seen on scanning, however her LFTs worsened yesterday and improved today. She has had complicated abdominal surgery in the past year with initial surgery for gastric volvulus, then had aspiration pneumonia and failure of the original surgery having to have a second surgery with Solis fundoplication. She was on Trach for several months with ARDS after the aspiration pneumonia in 2016. She has had persistant GERD since that time but much more severe in the past 2 weeks despite PPI and carafate. CT and u/s were not that remarkable on admission yesterday. Endoscopy showed persistant esophagitis to be treated medically. Appreciate GI and surgical input. No need for surgical intervention at this time. Will change PPI to dexilant and change the carafate to suspension. Discussed GERD diet and keep with softer solids for now. She already abides by GERD precautions. Will make sure she stops all NSAIDs including the ASA. (2) Abnormal liver enzymes Diagnosis: Secondary Plan: Variable. She has had no exposures of concern for hepatitis. Will order testing but doubt that is the issue. Test results pending. Can complete w/u as outpatient. recheck LFTs in 2 weeks (3) Depression Diagnosis: Secondary Plan: She sees psychiatry outpatient. She has been stable on her current meds. (4) Epigastric abdominal pain Diagnosis: Principal Plan: She had a decrease in her hbg that could have been due to IVF dilution, no blood in stool or emesis reported. stable after hydration with no evidence of acute bleeding. recheck in a few weeks as outpatient. (5) GERD (gastroesophageal reflux disease) Diagnosis: Principal Plan: No sign of thrush on oral exam. She hasn't been on antibiotics recently. HAs been worse over 2 weeks but much worse since vomiting yesterday. Not sure if she could have had a Jeana Karma tear with the vomiting (no sign on endoscopy). SEe notes above. . (6) History of paroxysmal supraventricular tachycardia Diagnosis: Secondary Plan: Controlled with the metoprolol. Continue dosing but adjust if HR or BP is too low. Consultants Dr. Mckay (GI), Dr. Hernandez (surgery) CBC/BMP: 03/15/17 0513 03/15/17 0515 Significant Findings Laboratory Tests Test 03/13/17 03/13/17 03/14/17 03/14/17 13:15 13:25 05:50 12:00 White Blood Count 13.3 TH/MM3 (4.0-11.0) Neutrophils (%) (Auto) 76.6 % (16.0-70.0) Monocytes (%) (Auto) 8.9 % (0.0-8.0) 9.2 % (0.0-8.0) 10.0 % (0.0-8.0) Neutrophils # (Auto) 10.1 TH/MM3 (1.8-7.7) Monocytes # (Auto) 1.2 TH/MM3 (0-0.9) Blood Urea Nitrogen 25 MG/DL (7-18) Estimat Glomerular Filtration 59 ML/MIN (>89) 65 ML/MIN (>89) Rate Random Glucose 120 MG/DL 107 MG/DL (74-106) (74-106) Total Bilirubin 1.4 MG/DL (0.2-1.0) Aspartate Amino Transf 99 U/L (15-37) 169 U/L (15-37) (AST/SGOT) Alanine Aminotransferase 125 U/L (10-53) 219 U/L (10-53) (ALT/SGPT) Alkaline Phosphatase 127 U/L 143 U/L (45-117) (45-117) Urine Occult Blood TRACE (NEG) Urine Bacteria RARE /hpf (NONE) Red Blood Count 3.60 MIL/MM3 3.66 MIL/MM3 (4.00-5.30) (4.00-5.30) Hemoglobin 10.5 GM/DL 10.4 GM/DL (11.6-15.3) (11.6-15.3) Hematocrit 31.4 % 31.8 % (35.0-46.0) (35.0-46.0) Chloride Level 109 MEQ/L (98-107) Calcium Level 8.4 MG/DL (8.5-10.1) Albumin 2.9 GM/DL (3.4-5.0) Test 03/15/17 03/15/17 05:13 05:15 Red Blood Count 3.58 MIL/MM3 (4.00-5.30) Hemoglobin 10.2 GM/DL (11.6-15.3) Hematocrit 31.3 % (35.0-46.0) Monocytes (%) (Auto) 9.7 % (0.0-8.0) Chloride Level 110 MEQ/L (98-107) Estimat Glomerular Filtration 70 ML/MIN (>89) Rate Aspartate Amino Transf 87 U/L (15-37) (AST/SGOT) Alanine Aminotransferase 152 U/L (10-53) (ALT/SGPT) Alkaline Phosphatase 118 U/L (45-117) Total Protein 6.1 GM/DL (6.4-8.2) Albumin 2.7 GM/DL (3.4-5.0) PE at Discharge Gen: WDWF, walking to her bed from the bathroom, no distress, able to get into bed without assistance or distress CV: RRR, no murmur Lungs: CTA bilaterally Abd: soft, scant BS, slightly high pitched when they are present, miild epigastric tenderness, not so tender to the RUQ, some LLQ tenderness, no rebound Ext: erythema and discomfort to the right medial inferior mallolar area better than 2 days ago but more pink than last PM, full ROM of the ankle, no pitting edema, no calf tenderness, had sequential TEDS on during the night. Pt Condition on Discharge: Good Discharge Disposition: Discharge Home Discharge Instructions DIET: Follow Instructions for: Heart Healthy Diet, Gastroesophageal Reflux Additional Diet Instructions: small meals frequently Activities you can perform: Regular-No Restrictions Other Activity Instructions: Head of bed elevated for sleep, do not eat 2 hours before laying down Ely Alicea MD March 15, 2017 08:54
[2017-03-15] MEDS: buPROPion HCL 100 MG SUSTAINED RELEASE TAB PO SCH (09:00)
[2017-03-15] MEDS: METOPROLOL TARTRATE 50 MG TAB PO SCH (09:06)
[2017-03-15] MEDS: PANTOPRAZOLE SOD 40 MG DELAYED RELEASE TAB PO SCH (09:06)
[2017-03-15] MEDS: ESCITALOPRAM OXALATE 10 MG TAB PO SCH (09:06)
[2017-03-15] MEDS: DOCUSATE SODIUM 50 MG/SENNA 8.6 MG TAB PO SCH (09:07)
== END 2017-03-15 10:00 | disposition home or self-care (01) | DRG 392 ==
LOC: PHED 12:45 → PHEDA 15:46 → PH3B 17:33 → OBSVTOIN 03-14 08:42
PROVIDERS: ADMIT Family Medicine; ATTEND Family Medicine
PROC: 0DB38ZX Excision of Lower Esophagus, Via Natural or Artificial Opening Endoscopic, Diagnostic (ICD-10-PCS; principal; 2017-03-15 07:00)
DX: K21.0 Gastro-esophageal reflux disease with esophagitis (principal); I10 Essential (primary) hypertension; K44.9 Diaphragmatic hernia without obstruction or gangrene; M81.0 Age-related osteoporosis without current pathological fracture; F32.9 Major depressive disorder, single episode, unspecified; R74.8 Abnormal levels of other serum enzymes; E78.5 Hyperlipidemia, unspecified; M25.571 Pain in right ankle and joints of right foot
CPT/HCPCS: 74177; 76705; 80053; 80074; 81001; 83605; 83690; 85025; 88305; 96361; 96374; 96375; G0378; J1170; J2405; J2543; J7030; Q9967

== ENCOUNTER → 2017-03-22 | Outpatient (CLI) | payer OTHER ==
[~2017-03-22] MED LIST changes: -ASPI81TA82 PO; -BUPR150T3 PO; -CALC-137 PO; +CALC1WAF CHEW; -CLON1 PO; -ESCI10TA PO; +EVIS60TA PO; -LANS30 PO; +LEXA10TA PO; -LOPR50TA12 PO; +MAGICPED SWISH-SWAL; +METO-309 PO; -PRAV80 PO; -RALO1TAB13 PO; +SUCR1S PO; +WELLTAB39 PO; -ZOFR4TAB3 SL
[2017-03-22 13:03] LABS: AUTOMATED NEUTROPHIL # 4.8 TH/MM3 (1.8-7.7); BASOPHIL % 0.6 % (0.0-2.0); EOSINOPHIL # 0.1 TH/MM3 (0-0.4); EOSINOPHIL % 1.2 % (0.0-4.0); HEMATOCRIT 38.8 % (35.0-46.0); HEMO FLAGS DIFF FINAL; LYMPH % 21.2 % (9.0-44.0); LYMPHOCYTE # 1.5 TH/MM3 (1.0-4.8); MEAN CELL VOLUME 88.6 FL (80.0-100.0); MEAN CORPUSCULAR HEMOGLOBIN 28.9 PG (27.0-34.0); MEAN CORPUSCULAR HGB CONC 32.6 % (32.0-36.0); PLATELET COUNT 232 TH/MM3 (150-450); RED BLOOD COUNT 4.38 MIL/MM3 (4.00-5.30); RED CELL DISTRIBUTION WIDTH 14.6 % (11.6-17.2)
[2017-03-22 13:33] LABS: URIC ACID 3.8 MG/DL (2.6-6.0)
[2017-03-22 13:35] LABS: INDIRECT BILIRUBIN 0.5 MG/DL (0.0-0.8); TOTAL BILIRUBIN ADULT 0.6 MG/DL (0.2-1.0)
== END ==
LOC: PLAB 11:40
PROVIDERS: ATTEND Family Medicine
DX: R74.0 Nonspecific elevation of levels of transaminase and lactic acid dehydrogenase [LDH] (principal); M25.473 Effusion, unspecified ankle; K21.9 Gastro-esophageal reflux disease without esophagitis
CPT/HCPCS: 80076; 82977; 84550; 85025

== ENCOUNTER → 2017-05-07 | Outpatient (CLI) | payer OTHER ==
[2017-05-07 12:39] LABS: AUTOMATED NEUTROPHIL # 3.1 TH/MM3 (1.8-7.7); BASOPHIL # 0.1 TH/MM3 (0-0.2); EOSINOPHIL # 0.1 TH/MM3 (0-0.4); EOSINOPHIL % 2.5 % (0.0-4.0); HEMATOCRIT 37.2 % (35.0-46.0); HEMO FLAGS DIFF FINAL; LYMPH % 27.9 % (9.0-44.0); LYMPHOCYTE # 1.5 TH/MM3 (1.0-4.8); MEAN CELL VOLUME 88.5 FL (80.0-100.0); MEAN CORPUSCULAR HGB CONC 33.9 % (32.0-36.0); MONO % 12.1 % (0.0-8.0); NEUT % 56.5 % (16.0-70.0); PLATELET COUNT 208 TH/MM3 (150-450); RED BLOOD COUNT 4.21 MIL/MM3 (4.00-5.30); RED CELL DISTRIBUTION WIDTH 14.8 % (11.6-17.2); WHITE BLOOD COUNT 5.5 TH/MM3 (4.0-11.0)
[2017-05-07 13:09] LABS: ALT (GPT) 46 U/L (10-53); ANION GAP 9 MEQ/L (5-15); AST (GOT) 30 U/L (15-37); BICARBONATE 26.9 MEQ/L (21.0-32.0); BLOOD UREA NITROGEN 24 MG/DL (7-18); CHLORIDE 105 MEQ/L (98-107); GLOMERULAR FILTRATION RATE 54 ML/MIN (>89); POTASSIUM 3.9 MEQ/L (3.5-5.1); SODIUM (NA) 141 MEQ/L (136-145)
[2017-05-07 13:11] LABS: ALKALINE PHOSPHATASE 95 U/L (45-117); TOTAL BILIRUBIN ADULT 0.6 MG/DL (0.2-1.0)
== END ==
LOC: PLAB 10:10
PROVIDERS: ATTEND Family Medicine
DX: R94.5 Abnormal results of liver function studies (principal); K29.70 Gastritis, unspecified, without bleeding; K21.9 Gastro-esophageal reflux disease without esophagitis
CPT/HCPCS: 80053; 85025

== ENCOUNTER → 2017-08-05 | Outpatient (CLI) | payer OTHER ==
[2017-08-05 13:35] LABS: AUTOMATED NEUTROPHIL # 2.8 TH/MM3 (1.8-7.7); BASOPHIL % 0.7 % (0.0-2.0); EOSINOPHIL # 0.2 TH/MM3 (0-0.4); EOSINOPHIL % 3.1 % (0.0-4.0); HEMATOCRIT 37.4 % (35.0-46.0); HEMO FLAGS DIFF FINAL; LYMPH % 40.9 % (9.0-44.0); LYMPHOCYTE # 2.7 TH/MM3 (1.0-4.8); MEAN CELL VOLUME 88.5 FL (80.0-100.0); MEAN CORPUSCULAR HEMOGLOBIN 29.7 PG (27.0-34.0); MEAN CORPUSCULAR HGB CONC 33.5 % (32.0-36.0); MONO % 11.9 % (0.0-8.0); NEUT % 43.4 % (16.0-70.0); PLATELET COUNT 224 TH/MM3 (150-450); RED BLOOD COUNT 4.22 MIL/MM3 (4.00-5.30); WHITE BLOOD COUNT 6.5 TH/MM3 (4.0-11.0)
[2017-08-05 14:12] LABS: ANION GAP 8 MEQ/L (5-15); AST (GOT) 17 U/L (15-37); BICARBONATE 28.2 MEQ/L (21.0-32.0); BLOOD UREA NITROGEN 25 MG/DL (7-18); CHLORIDE 104 MEQ/L (98-107); GLOMERULAR FILTRATION RATE 50 ML/MIN (>89); GLUCOSE,FASTING 86 MG/DL (74-99); POTASSIUM 3.9 MEQ/L (3.5-5.1); SODIUM (NA) 140 MEQ/L (136-145)
[2017-08-05 14:13] LABS: ALT (GPT) 23 U/L (10-53)
[2017-08-05 14:15] LABS: ALKALINE PHOSPHATASE 77 U/L (45-117); TOTAL BILIRUBIN ADULT 0.4 MG/DL (0.2-1.0)
== END ==
LOC: PLAB 10:18
PROVIDERS: ATTEND Family Medicine
DX: R74.0 Nonspecific elevation of levels of transaminase and lactic acid dehydrogenase [LDH] (principal); E78.5 Hyperlipidemia, unspecified; K21.9 Gastro-esophageal reflux disease without esophagitis
CPT/HCPCS: 80053; 85025

== ENCOUNTER → 2017-12-18 | Outpatient (CLI) | payer OTHER ==
[~2017-12-18] VITALS: Ht 160 cm; Wt 72.0 kg
[~2017-12-18] MED LIST changes: +CALC1TAB12 PO; +CHLORHEXIDINE GLUCONATE 2 % 1 PACK (2 CLOTHS) TOPICAL PRN; -EVIS60TA PO; +LACTATED RINGER'S 1000 ML INJ 1,000 ML IV ONE; +LACTATED RINGER'S 1000 ML IV PRN; +LIDOCAINE HCL 1% PF 5 ML SYRINGE OTHER ONE; +METOPROLOL TARTRATE 25 MG TAB PO PRN; +POVIDONE IODINE 5% (ANTISEPSIS KIT) 4 APPLICATIONS EACH NARE PRN; +PROPOFOL 200 MG/20 ML AMP IV ONE; +RALO60 PO; +SODIUM CHLORID 0.9% 500 ML IV PRN; +ePHEDrine/NS 25 MG/5 ML SYRINGE IV ONE
--- NOTE | 2017-12-18 12:06 | GIPROC ---
[facility] [address] [facility]. [facility], [address] EGD PROCEDURE REPORT EXAM DATE: 12/18/2017 PATIENT NAME: Adela Fay MR #: [id number] BIRTHDATE: 1960 ATTENDING: Erlin Earl MD ORDER #: [id number] A AUXILIARY: STATUS: outpatient INDICATIONS: The patient is a 57 yr old female here for an EGD due to Heartburn, despite use of lansoprazole, ranitidine, sucralfate and azithromycin. Previous EGD had revealed food matter in the esophagus, suggesting a motor disorder. PROCEDURE PERFORMED: EGD w/ dilation of esophagus via guidewire MEDICATIONS: Per Anesthesia and None. TOPICAL ANESTHETIC: CONSENT: The patient understands the risks and benefits of the procedure and understands that these risks include, but are not limited to: sedation, allergic reaction, infection, perforation and/or bleeding. Alternative means of evaluation and treatment include, among others: physical exam, x-rays, and/or surgical intervention. The patient elects to proceed with this endoscopic procedure. medical equipment was checked for proper function. Hand hygiene and appropriate measures for infection prevention was taken. After the risks, benefits and alternatives of the procedure were thoroughly explained, Informed consent was verified, confirmed and timeout was successfully executed by the treatment team. The patient was anesthetized with topical anesthesia and the endoscope was introduced through the mouth and advanced to the . Retroflexion was performed and was normal The gastroscope was then slowly withdrawn and removed. ESOPHAGUS: Linear distal esophageal erosions/ulcertions were noted, consistent with Grade 2 reflux esophagitis. Over a guidewire a 17mm Savary dilator was passed with moderate resistance met at the level of the UES and along the length of the esophagus. STOMACH: The mucosa of the stomach appeared normal. DUODENUM: The duodenal mucosa appeared normal. ADVERSE EVENTS: There were no complications. IMPRESSIONS: 1. Linear distal esophageal erosions/ulcertions were noted, consistent with Grade 2 reflux esophagitis 2. The mucosa of the stomach appeared normal 3. Normal duodenal mucosa 4. Retroflexion was performed and was normal RECOMMENDATIONS: Avoid cold fluid/foods and drink warm liquid, especially before and with pills and meals. Resume prior diet/medications. We'll discuss esophageal manometry before considering fundoplication of LYNX anti-reflux device. PATIENT CONDITION: stable DISPOSITION: Home REPEAT EXAM: Return as needed for EGD with dilatation Erlin Earl MD eSigned: Erlin Earl MD 12/18/2017 12:06 PM cc: Ely Alicea M.D. PATIENT NAME: Adela Fay Dary MR#: [id number]
--- NOTE | 2017-12-18 12:10 | GIPROC ---
[facility] [address] [facility]. [facility], [address] COLONOSCOPY PROCEDURE REPORT EXAM DATE: 12/18/2017 PATIENT NAME: Adela Fay MR #: [id number] BIRTHDATE: 1960 ENDOSCOPIST: Erlin Earl MD ORDER #: [id number] MANAGER FINE: STATUS: outpatient INDICATIONS: The patient is a 57 yr old female here for a colonoscopy due to family history of colon polyps PROCEDURE PERFORMED: Colonoscopy, screening MEDICATIONS: Per Anesthesia and None. PREP QUALITY: good ESTIMATED BLOOD LOSS: None CONSENT: The patient understands the risks and benefits of the procedure and understands that these risks include, but are not limited to: sedation, allergic reaction, infection, perforation and/or bleeding. Alternative means of evaluation and treatment include, among others: physical exam, x-rays, and/or surgical intervention. The patient elects to proceed with this endoscopic procedure. medical equipment was checked for proper function. Hand hygiene and appropriate measures for infection prevention was taken. After the risks, benefits and alternatives of the procedure were thoroughly explained, Informed consent was verified, confirmed and timeout was successfully executed by the treatment team. A digital exam was performed and revealed no abnormalities of the rectum The endoscope was introduced through the anus and advanced to the cecum, which was identified by both the appendix and ileocecal valve. The instrument was then slowly withdrawn as the colon was fully examined. COLON FINDINGS: The colonic mucosa appeared normal throughout the entire examined colon. Retroflexion was performed and was normal The scope was then completely withdrawn from the patient and the procedure terminated. ADVERSE EVENTS: There were no complications. IMPRESSIONS: 1. The colonic mucosa appeared normal throughout the entire examined colon 2. Retroflexion was performed and was normal 3. Was performed 4. Revealed no abnormalities of the rectum RECOMMENDATIONS: Resume prior diet/medications RECALL: Repeat colonoscopy in five years Erlin Earl MD eSigned: Erlin Earl MD 12/18/2017 12:10 PM cc: Ely Alicea M.D.
[2017-12-18 12:50] VITALS: BP 146/67; PULSE 59; RESP 18; TEMP 97.9; O2SAT 99
--- NOTE | 2017-12-19 09:22 | EKG ---
Date Performed: 12/18/2017 Time Performed: 09:53:01 PTAGE: 57 years EKG: SINUS BRADYCARDIA BORDERLINE ECG Compared to PREVIOUS TRACING , nonspecific T-wave changes have improved. PREVIOUS TRACIN07/03/2016 13.13 DOCTOR: Bebeto Coleman Interpretating Date/Time 12/19/2017 09:22:25
== END ==
LOC: HSDC 09:14
DX: Z12.11 Encounter for screening for malignant neoplasm of colon (principal); Z83.71 Family history of colonic polyps; R12 Heartburn; K21.0 Gastro-esophageal reflux disease with esophagitis; R00.1 Bradycardia, unspecified
CPT/HCPCS: 00813; 43248; 45378; 93005; C1769; J3010; J7120

== ENCOUNTER → 2018-01-09 | Outpatient (CLI) | payer OTHER ==
[~2018-01-09] MED LIST changes: -CALC1WAF CHEW; -CHLORHEXIDINE GLUCONATE 2 % 1 PACK (2 CLOTHS) TOPICAL PRN; -LACTATED RINGER'S 1000 ML INJ 1,000 ML IV ONE; -LACTATED RINGER'S 1000 ML IV PRN; -LIDOCAINE HCL 1% PF 5 ML SYRINGE OTHER ONE; -MAGICPED SWISH-SWAL; -METOPROLOL TARTRATE 25 MG TAB PO PRN; -POVIDONE IODINE 5% (ANTISEPSIS KIT) 4 APPLICATIONS EACH NARE PRN; -PROPOFOL 200 MG/20 ML AMP IV ONE; -SODIUM CHLORID 0.9% 500 ML IV PRN; -ePHEDrine/NS 25 MG/5 ML SYRINGE IV ONE
[2018-01-11 19:53] LABS: CARDIOLIPIN AB IGA LESS THAN 11.0 APL (0-11)
[2018-01-12 15:53] LABS: BETA2 GLYCOPROTEIN I AB IGA LESS THAN 9.0 SAU (< OR = 20); BETA2 GLYCOPROTEIN I AB IGG LESS THAN 9.0 SGU (< OR = 20); BETA2 GLYCOPROTEIN I AB IGM LESS THAN 9.0 SMU (< OR = 20); PHOS SERINE AB IGA LESS THAN 20 U/mL (<20)
[2018-01-13 12:26] LABS: PROTEIN C AG 89 % (70-150)
== END ==
LOC: PLAB 11:04
PROVIDERS: ATTEND Family Medicine
DX: I80.01 Phlebitis and thrombophlebitis of superficial vessels of right lower extremity (principal)
CPT/HCPCS: 36415; 81241; 85302; 85305; 85306; 86038; 86146; 86147; 86148

== ENCOUNTER → 2018-02-07 | Outpatient (CLI) | payer OTHER ==
[2018-02-07 14:04] LABS: AUTOMATED NEUTROPHIL # 3.1 TH/MM3 (1.8-7.7); BASOPHIL # 0.1 TH/MM3 (0-0.2); EOSINOPHIL # 0.2 TH/MM3 (0-0.4); HEMATOCRIT 38.6 % (35.0-46.0); LYMPH % 37.7 % (9.0-44.0); LYMPHOCYTE # 2.3 TH/MM3 (1.0-4.8); MEAN CELL VOLUME 84.5 FL (80.0-100.0); MEAN CORPUSCULAR HEMOGLOBIN 28.4 PG (27.0-34.0); MEAN CORPUSCULAR HGB CONC 33.6 % (32.0-36.0); MEAN PLATELET VOLUME 8.6 FL (7.0-11.0); MONO % 7.9 % (0.0-8.0); MONOCYTE # 0.5 TH/MM3 (0-0.9); NEUT % 50.4 % (16.0-70.0); PLATELET COUNT 232 TH/MM3 (150-450); RED BLOOD COUNT 4.56 MIL/MM3 (4.00-5.30); RED CELL DISTRIBUTION WIDTH 15.1 % (11.6-17.2); WHITE BLOOD COUNT 6.1 TH/MM3 (4.0-11.0)
[2018-02-07 14:18] LABS: ALBUMIN 3.5 GM/DL (3.4-5.0); AST (GOT) 20 U/L (15-37); BICARBONATE 26.9 MEQ/L (21.0-32.0); BLOOD UREA NITROGEN 30 MG/DL (7-18); CALCIUM 9.2 MG/DL (8.5-10.1); CHLORIDE 107 MEQ/L (98-107); CHOLESTEROL 182 MG/DL (120-200); CREATININE 1.12 MG/DL (0.50-1.00); GLOMERULAR FILTRATION RATE 50 ML/MIN (>89); GLUCOSE,FASTING 97 MG/DL (74-99); SODIUM (NA) 142 MEQ/L (136-145)
[2018-02-07 14:29] LABS: ALKALINE PHOSPHATASE 108 U/L (45-117); ALT (GPT) 28 U/L (10-53); CHOLESTEROL/ HDL RATIO 3.03 RATIO; HDL CHOLESTEROL 59.9 MG/DL (40.0-60.0); LDL CHOLESTEROL 100 MG/DL (0-99); TOTAL BILIRUBIN ADULT 0.4 MG/DL (0.2-1.0); TOTAL PROTEIN 7.6 GM/DL (6.4-8.2); TRIGLYCERIDES 112 MG/DL (42-150)
== END ==
LOC: PLAB 11:24
PROVIDERS: ATTEND Family Medicine
DX: K21.9 Gastro-esophageal reflux disease without esophagitis (principal); I80.8 Phlebitis and thrombophlebitis of other sites; M79.609 Pain in unspecified limb; F32.9 Major depressive disorder, single episode, unspecified; R55 Syncope and collapse; R74.0 Nonspecific elevation of levels of transaminase and lactic acid dehydrogenase [LDH]; E78.5 Hyperlipidemia, unspecified; K29.70 Gastritis, unspecified, without bleeding
CPT/HCPCS: 36415; 80053; 80061; 84443; 85025

== ENCOUNTER → 2018-03-05 | Outpatient (CLI) | payer OTHER ==
[~2018-03-05] MED LIST changes: +DIATRIZOATE MEGLUM/DIATRIZOATE SOD 120 ML BTL (for RAD DIAG) RECTAL ONE
--- NOTE | 2018-03-05 13:38 | RADRPT ---
EXAM DATE/TIME: 03/05/2018 11:15 [place] COMPARISON: No previous studies available for comparison. INDICATIONS : Constipation. FLUORO TIME: 5.4 minutes IMAGE COUNT: 21 CONTRAST: 1. Gastroview MEDICAL HISTORY : hiatal hernia SURGICAL HISTORY : Hysterectomy. hiatal hernia surgery ENCOUNTER: Initial ACUITY: 2 months PAIN SCORE: 3/10 LOCATION: Bilateral abdomen FINDINGS: Preliminary film is unremarkable. Under fluoroscopic guidance a Gastrografin enema was performed with free flow of contrast to the ceca l tip. Marine Designer film is large amount of stool throughout the colon.. Under careful intermittent fluoroscopic v isualization Gastrografin was instilled to tolerate the colon. Large amount of solid stool is eviden t. No obvious constricting lesions identified. Post evacuation radiographs show moderate remaining stool. CONCLUSION: Unremarkable Gastrografin enema for large amount of stool.. Sergio Heck MD FACR on March 05, 2018 at 13:34 Board Certified Radiologist. This report was verified electronically.
== END ==
LOC: HRAD 10:08
PROVIDERS: ATTEND Surgery Trauma Surgery
DX: K59.00 Constipation, unspecified (principal)
CPT/HCPCS: 74270; Q9963